=== PATIENT | male | born 1995 | race Two or more races ===

== ENCOUNTER 2021-03-13 02:54 | Emergency (ER) | payer OTHER ==
[~2021-03-13] VITALS: Ht 185.4 cm; Wt 71.7 kg
[2021-03-13] MEDS ORDERED: PANADOL (03:30)
[2021-03-13] MEDS ORDERED: ACETAMINOPHEN650 M2 PO (06:39)
[2021-03-13] MEDS ORDERED: AZITHROMYCIN500 MG PO (06:39)
== END 2021-03-13 06:59 | disposition home or self-care (01) ==
LOC: ER 02:54
DX: A49.3 Mycoplasma infection, unspecified site (principal); Z03.818 Encounter for observation for suspected exposure to other biological agents ruled out